=== PATIENT | male | born 1960 | race Caucasian/White ===

== ENCOUNTER 2016-06-14 10:57 | Emergency (ER) | payer OTHER ==
[2016-06-14] MEDS ORDERED: MECLIZINE 12.5 MG TAB PO STA (11:58)
[2016-06-14] MEDS ORDERED: SODIUM CHLORIDE 0.9% 1,000 ML IV STA (11:58)
[2016-06-14] MEDS ORDERED: ONDANSETRON 4 MG/2 ML VIAL IVP STA (11:58)
[2016-06-14 12:40] LABS: Basophils % (A) 1 %; CH 31.8; CHCM 34.7; Eosinophils # (A) 0.1 k/uL (0-0.7); Eosinophils % (A) 1 %; HCT 42.9 % (39.0-53.0); HDW 2.31; HGB 14.4 gm/dL (13.0-17.5); Luc # (Auto) 0.11; Luc % (Auto) 1; Lymphocytes # (A) 1.4 k/uL (1.0-4.8); Lymphocytes % (A) 18 %; MCHC 33.7 g/dL (31.0-37.0); Mean Platelet Volume 7.4; Monocytes # (A) 0.4 k/uL (0-1.0); Monocytes % (A) 5 %; Neutrophils # (A) 5.8 k/uL (1.3-7.7); Neutrophils % (A) 74 %; RBC 4.66 m/uL (4.30-5.90); RDW 12.8 % (11.5-15.5); WBC 7.8 k/uL (3.8-10.6); WBC (Perox) 7.82
[2016-06-14 12:52] LABS: Anion Gap 12 mmol/L; Blood Urea Nitrogen 12 mg/dL (9-20); Calcium 9.6 mg/dL (8.4-10.2); Carbon Dioxide 24 mmol/L (22-30); Chloride 104 mmol/L (98-107); Glucose 102 mg/dL (74-99); Non-African American GFR(MDRD) >60 (>60 ml/min/1.73 sqM); Potassium 4.5 mmol/L (3.5-5.1); Sodium 140 mmol/L (137-145)
[2016-06-14 13:21] LABS: Amorphous Sediment,Urine Occasional /hpf; Appearance,Urine Cloudy (Clear); Bilirubin,Urine Negative (Negative); Glucose,Urine (UA) Negative (Negative); Ketones,Urine Negative (Negative); Leukocyte Esterase,Urine Negative (Negative); Mucus,Urine Rare /hpf; Nitrite,Urine Negative (Negative); PH, Urine 7.5 (5.0-8.0); Particle Count 22717; Protein,Urine Negative (Negative); Specific Gravity,Urine 1.011 (1.001-1.035); Squamous Epithelial Cell,Urine <1 /hpf (0-4); UA Billing (MACRO vs. MICRO) MICRO; Urobilinogen,Urine <2.0 mg/dL (<2.0)
--- NOTE | 2016-06-14 13:50 | ED ---
General Adult HPI - General Chief complaint: Dizziness Stated complaint: Abnormal EKG Time Seen by Provider: 06/14/16 11:32 Source: patient Mode of arrival: wheelchair Limitations: no limitations - History of Present Illness Initial comments: Patient is a 56-year-old male with complaints of dizziness. Onset was last . Patient describes it as going to pass out and room spinning. Patient states worse with head movement. He doesn't related to changing position from sitting to standing. Patient states she's been having some congestion for the past week. Significant other also having some in her symptoms of congestion. Patient has not tried anything for his symptoms but does notice that if he lays still symptoms improved. Patient does, when he moves his head he becomes very dizzy for which he will vomit. Denies fever, chills, chest pain, shortness breath, diarrhea. [facility] and told to have an abnormal EKG for which they do not know was abnormal. EKG showed here shows a normal sinus rhythm with incomplete right bundle-branch block. - Related Data Home Medications Medication Instructions Recorded Confirmed Levothyroxine Sodium [Synthroid] 137 mcg PO DAILY 06/14/16 06/14/16 Previous Rx's Medication Instructions Recorded Meclizine [Antivert] 25 mg PO Q6H PRN #15 tab 06/14/16 Allergies Allergy/AdvReac Type Severity Reaction Status Date / Time No Known Allergies Allergy Verified 06/14/16 11:25 Review of Systems ROS Statement: Those systems with pertinent positive or pertinent negative responses have been documented in the HPI. Constitutional: No fever and no chills. HENT: No congestion, no rhinorrhea and no sore throat. Eyes: No discharge and no redness. Respiratory: No cough and no shortness of breath. Cardiovascular: No chest pain and no palpitations. Gastrointestinal: +nausea, +vomiting, no abdominal pain and no diarrhea. Genitourinary: No dysuria and no hematuria. Musculoskeletal: No back pain and no arthralgias. Skin: No pallor and no rash. Neurological: +dizziness and No headaches. ROS Other: All systems not noted in ROS Statement are negative. Past Medical History Past Medical History: No Reported History History of Any Multi-Drug Resistant Organisms: None Reported Additional Past Surgical History / Comment(s): carpel tunnel surg Past Psychological History: No Psychological Hx Reported Smoking Status: Never smoker Past Alcohol Use History: Occasional Past Drug Use History: Marijuana General Exam - General Exam Comments Initial Comments: Constitutional: Patient appears well-developed and well-nourished. No distress. Symptoms worsen with head shaking Head: Normocephalic and atraumatic. Eyes: Conjunctivae and EOM are normal. Right eye exhibits no discharge. Left eye exhibits no discharge. No scleral icterus. Neck: Normal range of motion. Neck supple. Cardiovascular: Normal rate and regular rhythm. No murmur heard. Pulmonary/Chest: Effort normal and breath sounds normal. No respiratory distress. No wheezes. Abdominal: Soft. No distension. There is no tenderness. There is no rebound and no guarding. Musculoskeletal: Normal range of motion. No edema or tenderness. Neuro Exam: A&Ox3, speech is fluent and spontaneous CN 2: no visual field deficits, PERRL CN 3, 4, 6: EOMI, no nystagmus CN 5: facial sensation intact b/l CN 7: Eyebrow raise and smile equal b/l CN 8: hearing intact to conversation CN 9, 10: palate elevation equal, no hoarseness to voice CN 11: shoulder shrug equal b/l CN 12: tongue protrusion w/o deviation Sensory: Intact to light touch, upper and lower extremities Motor: No pronator drift, no atrophy, normal muscle tone, b/l muscle strength 5/ 5 of hand flexors, biceps, triceps, quads, hamstrings, plantar and dorsiflexion Cerebellar: finger to nose intact b/l, heel to desouza intact b/l, Romberg negative Gait: Normal Skin: Skin is warm and dry. Not diaphoretic. Nursing notes and vitals reviewed. Limitations: no limitations Course Vital Signs 06/14/16 06/14/16 06/14/16 11:02 11:50 14:00 Temperature 97.7 F 97.8 F 97.6 F Pulse Rate 88 81 78 Respiratory 16 18 16 Rate Blood Pressure 136/82 130/83 133/87 O2 Sat by Pulse 98 98 99 Oximetry - Reevaluation(s) Reevaluation #1: Patient is given Antivert and symptoms completely resolved. Patient is able to shake his head without symptoms. EKG Findings - EKG Comments: EKG Findings:: EKG done at 1125 showing a ventricular rate of 76 bpm, PA interval 162 ms, QRS duration 106 ms, QTC 460 ms. Isolated T-wave inversion in lead 3. Incomplete right bundle branch block Medical Decision Making - Medical Decision Making Patient's a 56-year-old male presenting with vertigo. Vertigo is related to head shaking. Symptoms are completely resolved with Antivert and fluids. CBC, BMP, EKG, UA, troponin unremarkable. Prior to discharge, patient was resting comfortably in bed. Course of stay improved. Denies pain. Discussed physical exam and diagnostic tests with patient. Questions answered and patient is agreeable to discharge with close follow up with Primary Care Physician. Instructed to return to Emergency Department if symptoms worsen. ENT referral provided as well as Antivert. - Lab Data Result diagrams: 06/14/16 12:10 06/14/16 12:10 Lab Results 06/14/16 06/14/16 06/14/16 Range/Units 12:10 12:10 12:10 WBC 7.8 (3.8-10.6) k/uL RBC 4.66 (4.30-5.90) m/uL Hgb 14.4 (13.0-17.5) gm/dL Hct 42.9 (39.0-53.0) % MCV 92.0 (80.0-100.0) fL MCH 31.0 (25.0-35.0) pg MCHC 33.7 (31.0-37.0) g/dL RDW 12.8 (11.5-15.5) % Plt Count 185 (150-450) k/uL Neutrophils % 74 % Lymphocytes % 18 % Monocytes % 5 % Eosinophils % 1 % Basophils % 1 % Neutrophils # 5.8 (1.3-7.7) k/uL Lymphocytes # 1.4 (1.0-4.8) k/uL Monocytes # 0.4 (0-1.0) k/uL Eosinophils # 0.1 (0-0.7) k/uL Basophils # 0.0 (0-0.2) k/uL Sodium 140 (137-145) mmol/L Potassium 4.5 (3.5-5.1) mmol/L Chloride 104 (98-107) mmol/L Carbon Dioxide 24 (22-30) mmol/L Anion Gap 12 mmol/L BUN 12 (9-20) mg/dL Creatinine 0.73 (0.66-1.25) mg/dL Est GFR (MDRD) Af Amer >60 (>60 ml/min/1.73 sqM) Est GFR (MDRD) Non-Af >60 (>60 ml/min/1.73 sqM) Glucose 102 H (74-99) mg/dL Calcium 9.6 (8.4-10.2) mg/dL Troponin I <0.012 (0.000-0.034) ng/mL Urine Color Urine Appearance (Clear) Urine pH (5.0-8.0) Ur Specific [place] (1.001-1.035) Urine Protein (Negative) Urine Glucose (UA) (Negative) Urine Ketones (Negative) Urine Blood (Negative) Urine Nitrate (Negative) Urine Bilirubin (Negative) Urine Urobilinogen (<2.0) mg/dL Ur Leukocyte Esterase (Negative) Ur Squamous Epith Cells (0-4) /hpf Amorphous Sediment (None) /hpf Urine Mucus (None) /hpf 06/14/16 Range/Units 13:00 WBC (3.8-10.6) k/uL RBC (4.30-5.90) m/uL Hgb (13.0-17.5) gm/dL Hct (39.0-53.0) % MCV (80.0-100.0) fL MCH (25.0-35.0) pg MCHC (31.0-37.0) g/dL RDW (11.5-15.5) % Plt Count (150-450) k/uL Neutrophils % % Lymphocytes % % Monocytes % % Eosinophils % % Basophils % % Neutrophils # (1.3-7.7) k/uL Lymphocytes # (1.0-4.8) k/uL Monocytes # (0-1.0) k/uL Eosinophils # (0-0.7) k/uL Basophils # (0-0.2) k/uL Sodium (137-145) mmol/L Potassium (3.5-5.1) mmol/L Chloride (98-107) mmol/L Carbon Dioxide (22-30) mmol/L Anion Gap mmol/L BUN (9-20) mg/dL Creatinine (0.66-1.25) mg/dL Est GFR (MDRD) Af Amer (>60 ml/min/1.73 sqM) Est GFR (MDRD) Non-Af (>60 ml/min/1.73 sqM) Glucose (74-99) mg/dL Calcium (8.4-10.2) mg/dL Troponin I (0.000-0.034) ng/mL Urine Color Light Yellow Urine Appearance Cloudy (Clear) Urine pH 7.5 (5.0-8.0) Ur Specific [place] 1.011 (1.001-1.035) Urine Protein Negative (Negative) Urine Glucose (UA) Negative (Negative) Urine Ketones Negative (Negative) Urine Blood Negative (Negative) Urine Nitrate Negative (Negative) Urine Bilirubin Negative (Negative) Urine Urobilinogen <2.0 (<2.0) mg/dL Ur Leukocyte Esterase Negative (Negative) Ur Squamous Epith Cells <1 (0-4) /hpf Amorphous Sediment Occasional H (None) /hpf Urine Mucus Rare H (None) /hpf Disposition Clinical Impression: Vertigo Disposition: HOME SELF-CARE Condition: Good Instructions: Vertigo (ED) Additional Instructions: Patient was educated that he can watch on YouTube on how to do a modified Justin maneuver. Prescriptions: Meclizine [Antivert] 25 mg PO Q6H PRN #15 tab PRN Reason: vertigo Referrals: Caroline Velasquez DO [Primary Care Provider] - 1-2 days
[2016-06-14 14:02] VITALS: BP 133/87; PULSE 78; RESP 16; TEMP 97.6
== END 2016-06-14 14:01 | disposition home or self-care (01) ==
LOC: EC 10:57
DX: R42 Dizziness and giddiness (principal); Z79.899 Other long term (current) drug therapy
CPT/HCPCS: 36415; 80048; 84484; 85025; 81001; 99284; 96374; 96361; J2405; 93005

== ENCOUNTER → 2017-12-09 | Day surgery (SDC) | payer OTHER ==
[2017-12-06 09:45] VITALS: BMI 24.3
[~2017-12-09] MED LIST: LIDOCAINE 1% INJ 10MG/ML (20 ML MDV) ONE; PROPOFOL 10 MG/ML 20 ML VIAL IV ONE
[2017-12-09 07:20] VITALS: RESP 20; TEMP 98.5
[2017-12-09] MEDS: LACTATED RINGERS 1,000 ML IV SCH ×2 (07:22→07:44)
--- NOTE | 2017-12-09 07:48 | P.GSHP ---
History of Present Illness H&P Date: 12/09/17 Chief Complaint: GI bleed 77-year-old male who is referred from Dr. Caroline Velasquez. Patient rents today for colonoscopy. He's had issues with rectal bleeding. Past Medical History Past Medical History: Thyroid Disorder Additional Past Medical History / Comment(s): Hypothyroidism, hemorrhoid. History of Any Multi-Drug Resistant Organisms: None Reported Additional Past Surgical History / Comment(s): Carpel tunnel surgery, Colonoscopy. Past Anesthesia/Blood Transfusion Reactions: Previous Problems w/ Anesthesia Additional Past Anesthesia/Blood Transfusion Reaction / Comment(s): Woke up early during last colonoscopy. Past Psychological History: No Psychological Hx Reported Smoking Status: Never smoker Past Alcohol Use History: Occasional Past Drug Use History: None Reported - Past Family History Mother Family Medical History: No Reported History Medications and Allergies Home Medications Medication Instructions Recorded Confirmed Type Aspirin [Adult Low Dose Aspirin EC] 81 mg PO DAILY 12/06/17 12/09/17 History Levothyroxine Sodium 150 mcg PO DAILY 12/06/17 12/09/17 History Multivitamins, Thera [Multivitamin 1 tab PO DAILY 12/06/17 12/09/17 History (formulary)] Allergies Allergy/AdvReac Type Severity Reaction Status Date / Time No Known Allergies Allergy Verified 12/06/17 09:30 Surgical - Exam Vital Signs Temp Pulse Resp BP Pulse Ox 98.5 F 94 20 130/86 95 12/09/17 07:19 12/09/17 07:19 12/09/17 07:19 12/09/17 07:19 12/09/17 07:19 - General well developed, no distress - Eyes PERRL - ENT normal pinna - Neck no masses - Respiratory normal expansion - Cardiovascular Rhythm: regular - Abdomen Abdomen: soft, non tender Assessment and Plan Assessment: GI bleed. We'll perform colonoscopy.
--- NOTE | 2017-12-09 08:00 | P.OP ---
Date of Procedure: 12/09/17 Preoperative Diagnosis: GI bleed Postoperative Diagnosis: Diverticulosis Internal hemorrhoids Procedure(s) Performed: Colonoscopy Anesthesia: MAC Surgeon: Jairo Appiah Pathology: none sent Condition: stable Disposition: PACU Description of Procedure: The patient's placed on the operative table in the lateral position. He received IV sedation. Digital rectal exam was performed which revealed internal hemorrhoids. Prostate was symmetric without nodules. Flexible colonoscope was then placed patient anus passed throughout the entire colon. The ileocecal valve was visualized. The cecum, ascending and transverse colon appeared normal. In the descending and; was mild diverticular changes. Scope was then brought back the rectum and this appeared normal. Scope was brought back through the anus and internal hemorrhage noted. There is no active bleeding seen the colon. Scope was withdrawn from patient.
[2017-12-09 08:28] VITALS: BP 146/93; PULSE 69
--- NOTE | 2017-12-13 18:25 | CDI ---
Outpatient Documentation Clarification Form Date: 12/13/17 CDS/Locksmith Helper Name: Caro Callaway Phone: If any questions, call Lavern Byrne Cap Inspector at [phone] Patient Name: Pasquale Hurley Admit Date: 12/09/17 Discharge Date: 12/09/17 ATTENTION: The [facility] Coding Staff appreciate your assistance in clarifying documentation. Please respond to the clarification below the line at the bottom and electronically sign. The [facility] Coding staff will review the response and follow-up if needed. Please note: Queries are made part of the Legal Health Record. If you have any questions, please contact the Cap Inspector. Dear Dr. Appiah, What is the source of the GI bleed? Multiple coding resources, that we are required to follow, state that the physician should identify a source and the computer language coder may not assume. Thank you for your kind consideration. MTDD
== END ==
LOC: ORWHC2ENDO 07:00
PROVIDERS: ATTEND Surgery
DX: K92.2 Gastrointestinal hemorrhage, unspecified (principal); K57.30 Diverticulosis of large intestine without perforation or abscess without bleeding; K64.8 Other hemorrhoids; E03.9 Hypothyroidism, unspecified; Z79.82 Long term (current) use of aspirin; Z79.890 Hormone replacement therapy
CPT/HCPCS: 45378; J2001; J2704

== ENCOUNTER 2023-08-26 13:34 | Day surgery (SDC) | payer OTHER ==
[2023-08-26] MEDS ORDERED: LIDOCAINE 1% (10MG/ML) FOR IV START INTRADERMA PRN (14:09)
[2023-08-26] MEDS: LACTATED RINGERS 1,000 ML IV SCH (14:14)
[2023-08-26 14:15] VITALS: TEMP 97.6
[2023-08-26] MEDS ORDERED: PROPOFOL 10 MG/ML 20 ML VIAL IV ONE (15:08)
--- NOTE | 2023-08-26 15:32 | P.PCN ---
Date of Procedure: 08/26/23 Procedure(s) Performed: BRIEF HISTORY: Patient is a 63-year-old pleasant white male scheduled for an elective colonoscopy as a part of screening for colon cancer. PROCEDURE PERFORMED: Colonoscopy with snare polypectomy. PREOPERATIVE DIAGNOSIS: screening for colon cancer. IV sedation per Anesthesia. PROCEDURE: After informed consent was obtained, the patient, was brought into the endoscopy unit. IV sedation was administered by Anesthesia under continuous monitoring. Digital rectal examination was normal. Initially the Olympus CF-160 flexible video colonoscope was then inserted in the rectum, gradually advanced into the cecum without any difficulty. Careful examination was performed as the scope was gradually being withdrawn. Ileocecal valve and the appendiceal orifice were visualized and appeared normal. Prep was excellent. Mucosa of the cecum,appeared normal. In the ascending colon there was a 2 cm broad-based polyp that was removed by polypectomy. Adjacent to this area there was a 2.5 cm polyp that was removed by snare polypectomy. There was another 5 mm polyp that was also removed by snare polypectomy. Rest of the ascending colon, transverse colon, descending colon, appeared normal. In the sigmoid: There was a 1 cm polyp removed by snare polypectomy. Scattered left sided diverticulosis seen. Rest of thesigmoid colon, and rectum appeared normal. Retroflexion was performed in the rectum and grade 2 internal hemorrhoids were seen. The patient tolerated the procedure well. IMPRESSION: 2 cm broad-basedascending colon polyp, 2.5 cm round polyp and a 5 mm ascending colon polyps all removed by snare polypectomy 1 cm sigmoid: Polyp status post polypectomy Scattered sigmoid diverticulosis Grade 2 internal hemorrhoids RECOMMENDATIONS: Findings of this examination were discussed with the patient as well as his family. He was advised to follow with the biopsy results. If the biopsy reveals adenoma he can have a repeat colonoscopy in 3 years..
[2023-08-26 16:12] VITALS: BP 147/87; PULSE 73; RESP 18
== END 2023-08-26 16:10 | disposition home or self-care (01) ==
LOC: ORWHC2ENDO 13:34
PROVIDERS: ATTEND Internal Medicine Gastroenterology
DX: Z12.11 Encounter for screening for malignant neoplasm of colon (principal); D12.2 Benign neoplasm of ascending colon; K64.1 Second degree hemorrhoids; K57.30 Diverticulosis of large intestine without perforation or abscess without bleeding; E07.9 Disorder of thyroid, unspecified; F10.90 Alcohol use, unspecified, uncomplicated; Z79.890 Hormone replacement therapy; Z98.890 Other specified postprocedural states
CPT/HCPCS: 88305; 45385; J2704